=== PATIENT | female | born 1965 | race Hispanic/Latino ===

== ENCOUNTER 2016-07-02 15:49 | Emergency (ER) | payer BC ==
[2016-07-02 16:01] VITALS: TEMP 96.6
[2016-07-02] MEDS ORDERED: Sodium Chloride 0.9% 1,000 ML IV STA (16:12)
[2016-07-02] MEDS ORDERED: Iohexol 240 (50 ml) PO ONE (16:12)
--- NOTE | 2016-07-02 16:21 | ED PDOC ---
HPI: Abdomen Time Seen by Provider: 07/02/16 16:06 Chief Complaint (Nursing): Abdominal Pain Chief Complaint (Provider): Abdominal Pain History Per: Patient History/Exam Limitations: no limitations Onset/Duration Of Symptoms: Hrs (x30 mins) Current Symptoms Are (Timing): Still Present Additional Complaint(s): 50 y/o female who presents to the emergency department with a complaint of a lower right-sided abdominal pain described as stabbing x30 mins. Denies nausea, fever, chills, vomiting, diarrhea, or urinary discomfort. Last menstrual period was a week ago. Past Medical History Reviewed: Historical Data, Nursing Documentation, Vital Signs Vital Signs: Last Vital Signs Temp 96.6 F L 07/02/16 15:59 Pulse 70 07/02/16 18:40 Resp 22 07/02/16 18:40 BP 128/74 07/02/16 18:40 Pulse Ox 98 07/02/16 18:54 - Medical History PMH: No Chronic Diseases - Surgical History Surgical History: No Surg Hx - Family History Family History: States: Unknown Family Hx - Social History Current smoker - smoking cessation education provided: No Alcohol: None Drugs: Denies - Allergies Allergies/Adverse Reactions: Allergies Allergy/AdvReac Type Severity Reaction Status Date / Time No Known Allergies Allergy Verified 07/02/16 15:59 Review of Systems ROS Statement: Except As Marked, All Systems Reviewed And Found Negative Constitutional: Negative for: Fever, Other (Chills) Gastrointestinal: Positive for: Abdominal Pain (Right lower region). Negative for: Nausea, Vomiting, Diarrhea Genitourinary Female: Negative for: Dysuria, Frequency, Incontinence, Hematuria Physical Exam - Reviewed Nursing Documentation Reviewed: Yes Vital Signs Reviewed: Yes - Physical Exam Appears: Positive for: Non-toxic, No Acute Distress Head Exam: Positive for: ATRAUMATIC, NORMOCEPHALIC Skin: Positive for: Normal Color, Warm, Dry Gastrointestinal/Abdominal: Positive for: Soft, Tenderness (Tenderness to the RLQ). Negative for: Normal Exam, Rebound Back: Positive for: Normal Inspection. Negative for: L CVA Tenderness, R CVA Tenderness Neurologic/Psych: Positive for: Alert, Oriented - Laboratory Results Result Diagrams: 07/02/16 16:40 07/02/16 16:40 - ECG O2 Sat by Pulse Oximetry: 98 (RA) Pulse Ox Interpretation: Normal Medical Decision Making Medical Decision Making: Time: 16:06 Initial impression: Abdominal Pain Initial plan: --Abd pelvis PO & IV Contrast --COMP Metabolic Panel --ED Urine --ED Urine Dipstick --CBC w/ differential --Morphine 2mg IVP --Sodium Chloride 1,000 ml IV 100 mls/hr --Omnipaque 50 ml PO --Pelvic NON OB B Scan Limited (US) --Transvaginal (US) --Revaluation Time: 18:35 --While completing CT scan, BOLT MAKER called and said patient experienced dizziness after receiving contrast. Patient is in no respiratory distress. Returned back with mild dizziness without shortness of breath. No rash. Heart and Lungs are clear. Time: 18:49 --Abdomen/Pelvis CT FINDINGS: LOWER THORAX: Unremarkable. LIVER: Unremarkable. No gross lesion or ductal dilatation. GALLBLADDER AND BILE DUCTS: Unremarkable. PANCREAS: Unremarkable. No gross lesion or ductal dilatation. SPLEEN: Unremarkable. ADRENALS: Unremarkable. No mass. KIDNEYS AND URETERS: Unremarkable. No hydronephrosis. No solid mass. VASCULATURE: Unremarkable. No aortic aneurysm. BOWEL: Unremarkable. No obstruction. No gross mural thickening. APPENDIX: No abnormalities to suggest acute appendicitis. No right lower quadrant inflammatory processes identified. PERITONEUM: Unremarkable. No free fluid. No free air. LYMPH NODES: Unremarkable. No enlarged lymph nodes. BLADDER: Unremarkable. REPRODUCTIVE: Unremarkable. BONES: No acute fracture. OTHER FINDINGS: None. IMPRESSION: No acute findings related to/accounting for the clinical presentation. Scribe Attestation: Documented by Mary Foster, acting as a scribe for Jase Triana MD. Provider Scribe Attestation: All medical record entries made by the Scribe were at my direction and personally dictated by me. I have reviewed the chart and agree that the record accurately reflects my personal performance of the history, physical exam, medical decision making, and the department course for this patient. I have also personally directed, reviewed, and agree with the discharge instructions and disposition. Disposition - Clinical Impression Clinical Impression: Abdominal pain - Patient ED Disposition Is Patient to be Admitted: Transfer of Care - Disposition Disposition: Transfer of Care Disposition Time: 18:56 Condition: FAIR Patient Signed Over To: Nehemiah Shahid
[2016-07-02] MEDS ORDERED: Iohexol 240 (50 ml) ONE (16:26)
[2016-07-02 17:06] LABS: BASO # 0.1 K/uL (0.0-0.2); BASO % 0.7 % (0.0-2.0); EOS # 0.1 K/uL (0.0-0.7); EOS % 0.8 % (0.0-4.0); LYMPH # 1.3 K/uL (1.0-4.3); LYMPH % 17.2 % (20.0-40.0); MEAN CELL VOLUME 102.7 fl (81.0-99.0); MEAN CORPUSCULAR HGB CONC 34.1 g/dL (33.0-37.0); MEAN PLATELET VOLUME 9.1 fl (7.2-11.7); MONO # 0.5 K/uL (0.0-0.8); MONO % 7.4 % (0.0-10.0); NEUT # 5.5 K/uL (1.8-7.0); NEUT % 73.9 % (50.0-75.0); RED CELL DISTRIBUTION WIDTH 12.3 % (11.5-14.5); WHITE BLOOD COUNT 7.4 K/uL (4.8-10.8)
[2016-07-02 17:26] LABS: ALB/GLOB RATIO 1.3 (1.0-2.1); ALKALINE PHOSPHATASE 44 U/L (38-126); ALT/SGPT 29 U/L (9-52); AST/SGOT 29 U/L (14-36); BILIRUBIN,TOTAL 0.7 mg/dl (0.2-1.3); BLOOD UREA NITROGEN 14 mg/dl (7-17); CALCIUM 9.1 mg/dL (8.4-10.2); CARBON DIOXIDE 21 mmol/L (22-30); CHLORIDE 106 mmol/L (98-107); GFR AFRICAN-AMERICAN > 60; GLUCOSE,RANDOM 90 mg/dL (65-105); POTASSIUM 4.4 MMOL/L (3.6-5.0); SODIUM 138 mmol/l (132-148); TOTAL PROTEIN 6.8 G/DL (6.3-8.2)
[2016-07-02] MEDS ORDERED: Iohexol 300 100 ML IJ ONE (18:05)
[2016-07-02] MEDS ORDERED: Sodium Chloride 0.9% 50 ML IV ONE (18:05)
--- NOTE | 2016-07-02 18:50 | CT ---
PROCEDURE: CT Abdomen and Pelvis with contrast HISTORY: Right-sided abdominal pain. By history, negative test (concurrent with this examination). COMPARISON: None. TECHNIQUE: Contrast dose: 95 cc Omnipaque 300 Radiation dose: Total exam DLP = 276.22 mGy-cm. This CT exam was performed using one or more of the following dose reduction techniques: Automated exposure control, adjustment of the mA and/or kV according to patient size, and/or use of iterative reconstruction technique. FINDINGS: LOWER THORAX: Unremarkable. LIVER: Unremarkable. No gross lesion or ductal dilatation. GALLBLADDER AND BILE DUCTS: Unremarkable. PANCREAS: Unremarkable. No gross lesion or ductal dilatation. SPLEEN: Unremarkable. ADRENALS: Unremarkable. No mass. KIDNEYS AND URETERS: Unremarkable. No hydronephrosis. No solid mass. VASCULATURE: Unremarkable. No aortic aneurysm. BOWEL: Unremarkable. No obstruction. No gross mural thickening. APPENDIX: No abnormalities to suggest acute appendicitis. No right lower quadrant inflammatory processes identified. PERITONEUM: Unremarkable. No free fluid. No free air. LYMPH NODES: Unremarkable. No enlarged lymph nodes. BLADDER: Unremarkable. REPRODUCTIVE: Unremarkable. BONES: No acute fracture. OTHER FINDINGS: None. IMPRESSION: No acute findings related to/accounting for the clinical presentation.
--- NOTE | 2016-07-02 19:29 | ED PDOC ---
- Laboratory Results Result Diagrams: 07/02/16 16:40 07/02/16 16:40 - ECG O2 Sat by Pulse Oximetry: 98 (RA) Pulse Ox Interpretation: Normal Medical Decision Making Medical Decision Making: Time: :00 --Pending ultrasound, reassessment, and disposition. Time: :19 --Transvaginal US FINDINGS: Limitations: Exam is limited by bowel gas and multiple pelvic bowel loops. Uterus: Within normal limits in appearance. Measures 7.4 x 4.1 x 4.7 cm. Endometrial stripe does not appear abnormally thickened, measuring 5.2 mm. Right ovary: Measures 3.0 x 1.9 x 2.5 cm. Contains a simple cystic lesion measuring 1.4 cm maximally, most likely a dominant follicle. No followup is warranted based on the imaging findings, unless otherwise clinically indicated. Left ovary: Could not be visualized. There is bowel gas in the left adnexal region. Cul-de-sac: No free fluid. IMPRESSION: No significant acute abnormality identified. The left ovary could not be visualized, however. Small cystic lesion in the right ovary, most likely a dominant follicle. No evidence of right ovarian torsion. See above for remaining findings. Time: 21:03 --Reviewed results and labs were discussed with her. 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 Upon provider reevaluation patient is feeling better, is medically stable, and requires no further treatment in the ED at this time. Patient will be discharged home with Rx for Tramadol 50 mg. Counseling was provided and all questions were answered regarding diagnosis and need for follow up with Dr. Juan Manuel Tang DO. There is agreement to discharge plan. Return if symptoms persist or worsen. Clinical Impression:Ovarian cysts and abdominal pain Scribe Attestation: Documented by Mary Foster, acting as a scribe for Nehemiah Shahid MD. Provider Scribe Attestation: All medical record entries made by the Scribe were at my direction and personally dictated by me. I have reviewed the chart and agree that the record accurately reflects my personal performance of the history, physical exam, medical decision making, and the department course for this patient. I have also personally directed, reviewed, and agree with the discharge instructions and disposition. Disposition - Clinical Impression Clinical Impression: Abdominal pain, Ovarian cyst - POA Present On Arrival: None - Disposition Referrals: [facility] [Outside] Juan Manuel Tang DO [Staff Provider] - Disposition: Routine/Home Disposition Time: 21:03 Condition: IMPROVED Prescriptions: traMADol [Ultram] 50 mg PO Q6 #10 tab Instructions: Ovarian Cyst (ED), Abdominal Pain (ED) Forms: [facility] ED School/Work Excuse
--- NOTE | 2016-07-02 20:19 | US ---
EXAM: US Pelvis, Transvaginal CLINICAL HISTORY: 50 years old, female; Pain; Pelvic pain; Patient HX: Rlq pain for few hrs TECHNIQUE: Real-time transvaginal pelvic ultrasound (complete) with image documentation. Transvaginal imaging was used for better evaluation of the endometrium and adnexa. EXAM DATE/TIME: 07/02/2016 4:13 PM COMPARISON: No relevant prior studies available. FINDINGS: Limitations: Exam is limited by bowel gas and multiple pelvic bowel loops. Uterus: Within normal limits in appearance. Measures 7.4 x 4.1 x 4.7 cm. Endometrial stripe does not appear abnormally thickened, measuring 5.2 mm. Right ovary: Measures 3.0 x 1.9 x 2.5 cm. Contains a simple cystic lesion measuring 1.4 cm maximally, most likely a dominant follicle. No followup is warranted based on the imaging findings, unless otherwise clinically indicated. Left ovary: Could not be visualized. There is bowel gas in the left adnexal region. Cul-de-sac: No free fluid. IMPRESSION: No significant acute abnormality identified. The left ovary could not be visualized, however. Small cystic lesion in the right ovary, most likely a dominant follicle. No evidence of right ovarian torsion. See above for remaining findings.
[2016-07-02 20:26] VITALS: BP 115/71; PULSE 67; RESP 18
[2016-07-02 20:27] VITALS: O2SAT 98
== END 2016-07-02 21:17 | disposition home or self-care (01) ==
LOC: H.ER 15:49
DX: N83.209 Unspecified ovarian cyst, unspecified side (principal); R10.31 Right lower quadrant pain
CPT/HCPCS: 74177; 76830; 80053; 81025; 85025; 96360; 99284; J1885; J7040; Q9966; Q9967